=== PATIENT | male | born 1960 ===

== ENCOUNTER → 2024-09-29 | Outpatient (CLI) | payer MEDICARE ==
[2024-09-29 12:52] LABS: African American GFR (CKD) >90 (>60 ml/min/1.73 sqM); Blood Urea Nitrogen 22 mg/dL (9-20); Non-African American GFR(CKD) 78 (>60 ml/min/1.73 sqM)
--- NOTE | 2024-09-29 14:13 | CT ---
EXAMINATION TYPE: CT angio neck DATE OF EXAM: 09/29/2024 1:21 PM COMPARISON: None. CLINICAL INDICATION: Male, 64 years old with history of I65.29 OCCLUSION AND STENOSIS OF, Pulsatile t innitus L side. TECHNIQUE: CTA scan is performed with axial images are obtained, coronal and sagittal reformatted merrill ges are reviewed. MIP images created on a separate workstation and submitted for review. 3-D reconstr ucted images are created on an independent workstation and reviewed. Source images are reviewed. SISI CET criteria was used in interpretation of this exam? Contrast used:65ml mL of Isovue 370 with IV Contrast, (none if empty) Oral contrast used: (none if empty) CT DLP: 342 mGycm, Automated exposure control for dose reduction was used. FINDINGS: Carotid/Vascular Structures: There is a four-vessel arch. Vertebral arteries are codominant. Common carotid arteries bifurcate into internal and external carotid arteries. There is approximately 35% narrowing at the origin of the right internal carotid artery. No significant narrowing of the le ft internal carotid artery is evident. Vertebral arteries are codominant. Internal carotid arteries and vertebral arteries are patent to the skull base. IMPRESSION: 1. Mild narrowing of the origin of the right internal carotid artery of less than 50%. 2. No significant left internal carotid artery narrowing. [facility], , 09/29/2024 2:10 PM
== END | disposition home or self-care (01) ==
LOC: RADCTMAIN 12:03
PROVIDERS: ATTEND Surgery
DX: I65.21 Occlusion and stenosis of right carotid artery (principal)
CPT/HCPCS: 82565; 84520; 70498; Q9967